=== PATIENT | female | born 1995 | race American Indian/Alaskan Native ===

== ENCOUNTER 2018-08-02 10:59 | Emergency (ER) | payer SELFPAY ==
[2018-08-02 11:07] VITALS: BP 144/83
--- NOTE | 2018-08-02 11:09 | Emergency Department Report ---
Blank Doc - Documentation Documentation: Abnormal vaginal bleeding. LMP 07/01/18. ! home preg + 2 preg -. History of mi scarriage This initial assessment diagnostic orders/clinical plan/treatment (s) is/Are subject change based on patient's health status, clinical progression and re- assessment by fellow clinical providers in the ED. Further treatment and work-up at subsequent clinical providers discretion. Patient/guardians urged not to elope from their condition may be serious if not clinically assessed and rachelle camacho. Initial order include:
[2018-08-02 12:25] LABS: Bilirubin,Urine NEG (Negative); Blood,Urine LG (Negative); Color,Urine Yellow (Yellow); Mucus,Urine FEW /HPF; Protein,Urine <15 mg/dL mg/dL (Negative); Urobilinogen,Urine < 2.0 mg/dL (<2.0); WBC,Urine < 1.0 /HPF (0.0-6.0)
--- NOTE | 2018-08-02 12:48 | Emergency Department Report ---
ED Female HPI - General Chief complaint: Vaginal Bleeding Stated complaint: POSS MISCARRIAGE Time Seen by Provider: 08/02/18 11:05 Source: patient Mode of arrival: Ambulatory Limitations: No Limitations - History of Present Illness Initial comments: This is a 23-year-old female who presents to ED stay and 5 days ago she began spotting in from the vagina. Patient states that 2 days ago she took a test that was positive and then today she took another one that was negative. Patient is unsure if she is and wanted to be evaluated to find out. MD Complaint: vaginal bleeding - Related Data Previous Rx's Medication Instructions Recorded Last Taken Type Ibuprofen [Motrin] 800 mg PO Q8HR #30 tablet 08/02/18 Unknown Rx Allergies Allergy/AdvReac Type Severity Reaction Status Date / Time No Known Allergies Allergy Verified 08/02/18 11:00 ED Review of Systems ROS: Stated complaint: POSS MISCARRIAGE Other details as noted in HPI Comment: All other systems reviewed and negative ED Past Medical Hx - Past Medical History Previous Medical History?: Yes Additional medical history: BLADDER CONDITION/ MIS CARRIAGE LAST YEAR - Social History Smoking Status: Never Smoker Substance Use Type: Alcohol - Medications Home Medications: Home Medications Medication Instructions Recorded Confirmed Last Taken Type Ibuprofen [Motrin] 800 mg PO Q8HR #30 tablet 08/02/18 Unknown Rx ED Physical Exam - General Limitations: No Limitations General appearance: alert, in no apparent distress - Head Head exam: Present: atraumatic, normocephalic - Eye Eye exam: Present: normal appearance - ENT ENT exam: Present: mucous membranes moist - Neck Neck exam: Present: normal inspection - Respiratory Respiratory exam: Present: normal lung sounds bilaterally. Absent: respiratory distress - Cardiovascular Cardiovascular Exam: Present: regular rate, normal rhythm. Absent: systolic murmur, diastolic murmur, rubs, gallop - GI/Abdominal GI/Abdominal exam: Present: soft, normal bowel sounds - Extremities Exam Extremities exam: Present: normal inspection - Back Exam Back exam: Present: normal inspection - Neurological Exam Neurological exam: Present: alert, oriented X3 - Psychiatric Psychiatric exam: Present: normal affect, normal mood - Skin Skin exam: Present: warm, dry, intact, normal color. Absent: rash ED Course Vital Signs 08/02/18 11:00 Temperature 97.9 F Pulse Rate 67 Blood Pressure 144/83 O2 Sat by Pulse 99 Oximetry ED Medical Decision Making - Medical Decision Making 23-year-old female presents with menstrual cycle. test negative. Discussed the patient this is just menstrual cycle and that she is not . Discuss to follow-up with [facility] This is normal patient is in no acute distress Critical care attestation.: If time is entered above; I have spent that time in minutes in the direct care of this critically ill patient, excluding procedure time. ED Disposition Clinical Impression: Menstrual cramps, Normal menstrual period Disposition: TO HOME OR SELFCARE Is pt being admited?: No Does the pt Need Aspirin: No Condition: Stable Instructions: Dysmenorrhea (ED), Menstruation (ED) Additional Instructions: Make sure to follow up with the primary care physician as discussed. Take all your medications as you've been prescribed. If you have any worsening symptoms or develop new symptoms please return to ED immediately. Prescriptions: Ibuprofen [Motrin] 800 mg PO Q8HR #30 tablet Referrals: HAMLET DAVENPORT MD [Primary Care Provider] - 3-5 Days Forms: Accompanied Note, Work/School Release Form(ED) Time of Disposition: 12:52
== END 2018-08-02 13:02 | disposition home or self-care (01) ==
LOC: ED 10:59
DX: N94.6 Dysmenorrhea, unspecified (principal)
CPT/HCPCS: 36415; 81001; 84702

== ENCOUNTER 2018-09-18 20:23 | Emergency (ER) | payer OTHER ==
--- NOTE | 2018-09-18 20:37 | Emergency Department Report ---
Stated Complaint: poss strep throat Time Seen by Provider: 09/18/18 20:36 - HPI History of Present Illness: here for STI with her partner MSE screening note: Focused history and physical exam performed. Due to findings the following was ordered: ED Disposition for MSE Condition: Stable
[2018-09-18] MEDS ORDERED: XYLOCAINE 1% MPF 5 mL INFILTRATI ONE (20:55)
[2018-09-18] MEDS ORDERED: ZITHROMAX PO ONE (20:55)
[2018-09-18] MEDS ORDERED: ROCEPHIN IM ONE (20:55)
--- NOTE | 2018-09-18 20:55 | Emergency Department Report ---
ED Dysuria HPI - HPI Chief Complaint: Sore Throat Stated Complaint: poss strep throat Time Seen by Provider: 09/18/18 20:36 Duration: 3 Days Severity: Mild Symptoms: Dysuria: No, Frequency: No, Suprapubic Pain: No, Flank Pain: No, Fever: No, Hematuria: No, Abdominal Pain: No, Previous UTI's: No Other History: Here with partner both with discharge. no pain. no fever. co only of vag dc. lmp 2 w ago. ED Review of Systems ROS: Stated complaint: poss strep throat Other details as noted in HPI Comment: All other systems reviewed and negative ED Past Medical Hx - Past Medical History Previous Medical History?: No Additional medical history: BLADDER CONDITION/ MIS CARRIAGE LAST YEAR - Surgical History Past Surgical History?: Yes Additional Surgical History: - Social History Smoking Status: Never Smoker Substance Use Type: Alcohol - Medications Home Medications: Home Medications Medication Instructions Recorded Confirmed Last Taken Type Ibuprofen [Motrin] 800 mg PO Q8HR #30 tablet 08/02/18 Unknown Rx Dysuria Exam - Exam General: Vital signs noted. No distress. Alert and acting appropriately. Exam: Yes Moist Mucous Membranes, No CVA Tenderness, No Abdominal Tenderness, No Rigidity or Guarding ED Course Vital Signs 09/18/18 20:40 Temperature 98.4 F Pulse Rate 90 Respiratory 18 Rate Blood Pressure 143/88 O2 Sat by Pulse 99 Oximetry ED Medical Decision Making - Medical Decision Making empiric treatment due to public health risk rocephin and azithromycin dc home with follow up with obgyn Vital Signs 09/18/18 20:40 Temperature 98.4 F Pulse Rate 90 Respiratory 18 Rate Blood Pressure 143/88 O2 Sat by Pulse 99 Oximetry Critical care attestation.: If time is entered above; I have spent that time in minutes in the direct care of this critically ill patient, excluding procedure time. ED Disposition Clinical Impression: STI (sexually transmitted infection), STD exposure Disposition: DC-01 TO HOME OR SELFCARE Is pt being admited?: No Does the pt Need Aspirin: No Condition: Stable Instructions: Safe Sex (ED) Referrals: [facility] [Outside] - 3-5 Days Time of Disposition: 20:54
[2018-09-18 21:29] LABS: HCG Qualitative,Urine Negative (Negative)
[2018-09-18 21:30] LABS: Bilirubin,Urine NEG (Negative); Blood,Urine LG (Negative); Color,Urine Yellow (Yellow); Mucus,Urine FEW /HPF; Protein,Urine <15 mg/dL mg/dL (Negative)
[2018-09-18 21:38] VITALS: BP 143/88
== END 2018-09-18 22:10 | disposition home or self-care (01) ==
LOC: ED 20:23
DX: A64 Unspecified sexually transmitted disease (principal); Z91.018 Allergy to other foods
CPT/HCPCS: 81001; 81025; 90471; 99283; J0696